=== PATIENT | female | born 1995 | race Hispanic/Latino ===

== ENCOUNTER 2018-08-14 20:06 | Emergency (ER) | payer OTHER ==
[~2018-08-14 20:06] MED LIST: PREDNISONE50 M1 PO
[2018-08-14 23:00] VITALS: BP 155/79
[2018-08-14] MEDS ORDERED: PROAIR HFA8.5 GM INH (23:02)
[2018-08-14] MEDS ORDERED: QVAR8.7 G1 INH (23:03)
[2018-08-14] MEDS ORDERED: AMOXICILLIN500 M3 PO (23:20)
[2018-08-14] MEDS ORDERED: IBUPROFEN600 M1 PO (23:20)
--- NOTE | 2018-08-14 23:21 | ED EAR COMPLAINT ---
History of Present Illness General Chief Complaint: General Adult Stated Complaint: "BOTH EARS ,HEAD AND THROAT PAINFULL" Source: patient, old records, friend Exam Limitations: no limitations Vital Signs & Intake/Output Vital Signs & Intake/Output Vital Signs Date Time Temp Pulse Resp B/P B/P Pulse O2 O2 Flow FiO2 Mean Ox Delivery Rate 08/14 2303 97 Room Air 08/14 2300 97.2 108 18 155/79 97 Room Air 08/14 2009 97.9 104 18 144/83 97 Room Air Allergies Coded Allergies: No Known Allergies (07/16/18) Reconcile Medications Albuterol Sulfate (Proair Hfa) 90 MCG HFA.AER.AD 2 PUF INH AD PRN ASTHMA ( Reported) Amoxicillin 500 MG TABLET 1 TAB PO TID otitis media Beclomethasone Dipropionate (QVAR) 80 MCG AER.W.ADAP 2 PUF INH BID ASTHMA ( Reported) Ibuprofen 600 MG TABLET 1 TAB PO Q6P PRN pain with food Triage Note: PT TO TRIAGE WITH BILAT EAR PAIN AND THROAT PAIN X2 DAYS. SOME DRY COUGH PER PT. THROAT SWAB OBTAINED AND SENT IN TRIAGE. PT AFEBRILE. Triage Nurses Notes Reviewed? yes Onset: 2 days Duration: day(s):, constant, continues in ED Timing: recent history Injury Environment: home Severity: moderate No Modifying Factors: none LMP (ages 10-50): unknown : No Patient currently breastfeeds: No HPI: 2 days prior to admission patient complains of increasing bilateral ear pain sore throat with mild congestion. She denies fever chills nausea vomiting diarrhea abdominal pain chest pain cough shortness of breath dysuria rash bleeding. Past History Travel History Traveled to [place] past 21 day No Medical History Any Pertinent Medical History? 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 No Review of Systems Review of Systems Constitutional: Reports: see HPI, malaise. EENTM: Reports: see HPI, ear pain, nasal congestion, throat pain. Respiratory: Reports: no symptoms. Cardiovascular: Reports: no symptoms. GI: Reports: no symptoms. Genitourinary: Reports: no symptoms. Musculoskeletal: Reports: no symptoms. Skin: Reports: no symptoms. Neurological/Psychological: Reports: no symptoms. Hematologic/Endocrine: Reports: no symptoms. Immunologic/Allergic: Reports: no symptoms. All Other Systems: Reviewed and Negative Physical Exam Physical Exam General Appearance: well developed/nourished, alert, awake, anxious, mild distress, obese Head: atraumatic, normal appearance Eyes: Bilateral: normal appearance, PERRL, EOMI. Ears: Right: Tympanic red. Bilateral: canal normal, Tympanic bulging. 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 Skin: intact, normal color, warm/dry Progress Differential Diagnoses I considered the following diagnoses in my evaluation of the patient: Otitis media otitis externa pharyngitis Plan of Care: Orders Procedure Date/time Status THROAT CULTURE W/QUICK STREP 08/14 2012 Active Current Medications Sig/Shmuel Start time Last Medication Dose Stop Time Status Admin Amoxicillin 500 MG ONCE ONE 08/14 2330 UNVr (Amoxil) 08/14 2331 Ibuprofen 600 MG ONCE ONE 08/14 2330 UNVr (Motrin) 08/14 2331 Oxymetazoline HCl 2 SPRAY ONCE ONE 08/14 2330 UNVr (Afrin) 08/14 2331 Initial ED EKG: none Departure Departure Time of Disposition: 2318 Disposition: HOME OR SELF CARE Condition: Stable Clinical Impression Primary Impression: Otitis media Secondary Impressions: Pharyngitis due to epifanio influenza virus Referrals: Patient Has No Primary Care Dr (PCP/Family) Departure Forms: Customer Survey General Discharge Information Prescriptions: Current Visit Scripts Amoxicillin 1 TAB PO TID #30 TAB Ibuprofen 1 TAB PO Q6P PRN pain #50 TAB with food
== END 2018-08-14 23:40 ==
LOC: ERH 20:06
DX: H66.93 Otitis media, unspecified, bilateral (principal); J09.X2 Influenza due to identified novel influenza A virus with other respiratory manifestations; J45.909 Unspecified asthma, uncomplicated